=== PATIENT | female | born 1980 | race Hispanic/Latino ===

== ENCOUNTER 2024-04-05 05:07 | Inpatient (IN) | payer BC, MEDICAID, OTHER, SELFPAY ==
[2024-04-04 13:05] LABS: Hematocrit 37.7 % (34.9-44.5); Hemoglobin 12.9 g/dL (12.0-15.5); Platelet Count 261 10x3/uL (150-450)
[2024-04-04 13:55] LABS: HBsAg Index 0.18 S/CO (0-0.99); HIV (1/2) Antibody/Antigen Non-Reactive (NonReactive); HIV 1/2 INDEX 0.07 S/CO (<1.00); Hep B Surf Ag Non-Reactive S/CO (NonReactive)
[2024-04-04 13:56] LABS: Syphilis Antibody Nonreactive (Nonreactive); Syphilis Antibody Index 0.07 S/CO (<1.00 Non-Reactive)
[~2024-04-05 05:07] MED LIST: Acetaminophen 500 MG TAB PO PRN; Carboprost 250 MCG/ML AMP IM PRN; Diphenoxylate HCl/Atropine Tablet PO PRN; Docusate 100 MG CAP PO PRN; Famotidine/PF 20 mg/2ml Vial SLOW IVP PRN; Methylergonovine 0.2 MG/ML VIAL IM PRN; Misoprostol 200 MCG TAB PR PRN; Ondansetron PF 4 MG/2 ML Vial IVP PRN; Oxytocin 30 units/NS 500 ML 500 ML IV SCH; Promethazine HCl 25 MG/ML VIAL IM PRN; Tranexamic Acid 1,000 MG/10 ML VIAL IVP PRN; hydrALAZINE 20 MG/ML VIAL SLOW IVP PRN
[2024-04-05 05:48] VITALS: BMI 35.9
[2024-04-05] MEDS: Lactated Ringer's 1,000 ML IV SCH (06:17)
[2024-04-05] MEDS ORDERED: Famotidine/PF 20 mg/2ml Vial SLOW IVP PRN (06:58)
[2024-04-05] MEDS: CEFAZOLIN 2 GM in Sodium Chloride 0.9% 100 ML IVPB SCH (07:14)
[2024-04-05] MEDS: Bicitra 30 ML UDCUP PO PRN (07:14)
[2024-04-05] MEDS ORDERED: Moisturizing Cream (Eucerin) 113 GM JAR TOP PRN (07:26)
[2024-04-05] MEDS ORDERED: Naloxone HCl 0.4 mg/ml Vial IV PRN (07:26)
[2024-04-05] MEDS ORDERED: Promethazine HCl 25 MG/ML VIAL IM PRN ×2 (07:26)
[2024-04-05] MEDS ORDERED: Ondansetron HCl/PF 4 MG/2 ML Vial IVP PRN (07:26)
[2024-04-05] MEDS ORDERED: HYDROmorphone 2 MG/ML VIAL SLOW IVP PRN (07:26)
[2024-04-05] MEDS ORDERED: Naloxone HCl 0.4 mg/ml Vial IVP PRN ×2 (07:26)
[2024-04-05] MEDS ORDERED: diphenhydrAMINE 50 MG/ML VIAL IVP PRN (07:26)
[2024-04-05] MEDS ORDERED: Communication Order-Pharmacy FS SCH (07:30)
[2024-04-05] MEDS ORDERED: Calcium Gluc 4.6 MEQ/10 ML (100 MG/ML) SLOW IVP PRN (07:40)
[2024-04-05] MEDS ORDERED: Lorazepam 2 MG/ML VIAL SLOW IVP PRN (07:40)
[2024-04-05] MEDS: hydrALAZINE 20 MG/ML VIAL SLOW IVP SCH (07:43)
[2024-04-05] MEDS ORDERED: Magnesium Sulfate 20 gm/500 ml 20 GM/500 ML BAG IVPB SCH (07:45)
[2024-04-05] MEDS ORDERED: Lanolin Ointment 7 GM TUBE TOP PRN (08:54)
[2024-04-05] MEDS ORDERED: diphenhydrAMINE 25 MG CAP PO PRN (08:54)
[2024-04-05] MEDS ORDERED: Bisacodyl 10 MG SUPP PR PRN (08:54)
[2024-04-05 10:28] LABS: #Basophils 0.04 10x3/uL (0.0-0.2); #Eosinphils 0.02 10x3/uL (0.0-0.5); #Monocytes 0.36 10x3/uL (0.0-1.1); #Neutrophils 5.78 10x3/uL (1.5-8.4); %Basophils 0.5 % (0.0-2.0); %Eosinophils 0.3 % (0.0-6.0); %Lymphocytes 20.4 % (18.0-47.0); %Monocytes 4.5 % (0.0-10.0); %Neutrophils 72.5 % (40.0-75.0); Hematocrit 33.5 % (34.9-44.5); Hemoglobin 11.1 g/dL (12.0-15.5); Mean Corpuscular HGB CONC 33.1 g/dL (32.0-36.0); Mean Corpuscular Volume 84.4 fl (81.6-98.3); Mean Platelet Volume 9.9 fl (7.4-10.4); Platelet Count 201 10x3/uL (150-450); Red Blood Cell (RBC) Count 3.97 10x6/uL (3.90-5.03)
[2024-04-05 10:46] LABS: ALT (SGPT) 25 U/L (8-55); AST (SGOT) 41 U/L (5-34); Albumin 2.4 g/dL (3.5-5.0); Alkaline Phosphatase 147 U/L (40-110); Anion Gap 14 mmol/L (10-20); BUN (Urea Nitrogen) 12 mg/dL (7.0-18.7); Bilirubin, Total 0.2 mg/dL (0.2-1.2); Calc. Creatinine Clearance 166 mL/min (70-130); Calcium 8.6 mg/dL (7.8-10.44); Carbon Dioxide 16 mmol/L (22-29); Chloride 112 mmol/L (98-107); Estimated GFR 111; Globulin 3.1 g/dL (2.4-3.5); Glucose 98 mg/dL (70-105); Protein, Total 5.5 g/dL (6.0-8.3); Sodium 138 mmol/L (136-145)
[2024-04-05 11:01] LABS: Creatinine, Urine 22.52 mg/dL (47-110)
[2024-04-05] MEDS: Ketorolac Tromethamine 30 MG (1 mL) VIAL IVP PRN (12:05)
[2024-04-05] MEDS: Phytonadione Neonatal 1 MG/0.5 ML AMP ONE (12:24)
[2024-04-05] MEDS: Erythromycin Base 0.5% Oint 1 GM TUBE ONE (12:24)
[2024-04-05] MEDS: Famotidine/PF 20 mg/2ml Vial ONE (12:24)
[2024-04-05] MEDS: PHENYLEPHRINE-NS 100 MCG/ML 10 ML SYRINGE ONE ×2 (12:24→12:25)
[2024-04-05] MEDS: Dexmedetomidine 200 MCG/2 ML VIAL ONE (12:24)
[2024-04-05] MEDS: ePHEDrine Sulfate 50 MG/10 ML VIAL ONE (12:24)
[2024-04-05] MEDS: Oxytocin 10 UNITS/ML VIAL ONE (12:24)
[2024-04-05] MEDS: Boostrix 0.5 ML (Tdap) VIAL (>/=7 yrs of age) IM ONE (12:24)
[2024-04-05] MEDS: Phenylephrine 40 MG/NS 250 ML 250 ML ONE (12:24)
[2024-04-05] MEDS: Morphine PF 10 MG/10 ML VIAL ONE (12:24)
[2024-04-05] MEDS: Ondansetron PF 4 MG/2 ML Vial ONE (12:24)
[2024-04-05] MEDS: Hepatitis B Vaccine 10 MCG/0.5 ML SYR ONE (12:24)
[2024-04-05] MEDS: Ferrous Sulfate 325 MG TAB PO SCH (12:25)
[2024-04-05] MEDS: Enoxaparin 40 MG (0.4 mL) SYRINGE SC SCH (12:25)
[2024-04-05] MEDS: metFORMIN 500 MG TAB PO SCH ×2 (12:25→17:16)
[2024-04-05] MEDS: Prenatal Vitamin 1 TAB PO SCH (12:25)
[2024-04-05] MEDS: Ibuprofen 800 MG TAB PO SCH (13:12)
[2024-04-05] MEDS: Ondansetron PF 4 MG/2 ML Vial IVP PRN (13:40)
[2024-04-05] MEDS: Acetaminophen 500 MG TAB PO SCH (13:40)
[2024-04-05] MEDS ORDERED: HYDROcodone/Acetaminophen 5/325 mg Tablet PO PRN ×2 (19:30)
[2024-04-05] MEDS: Ibuprofen 600 MG TAB PO SCH (19:41)
[2024-04-06] MEDS: Simethicone Chewable 80 MG TAB PO PRN (00:37)
[2024-04-06 03:25] LABS: Hemoglobin 9.8 g/dL (12.0-15.5); Mean Corpuscular HGB CONC 32.7 g/dL (32.0-36.0); Mean Corpuscular Hemoglobin 27.5 pg (27.0-33.0); Mean Corpuscular Volume 84.3 fl (81.6-98.3); Mean Platelet Volume 9.8 fl (7.4-10.4); Platelet Count 188 10x3/uL (150-450); RBC Distribution Width 15.1 % (11.5-14.5); Red Blood Cell (RBC) Count 3.56 10x6/uL (3.90-5.03); White Blood Cell (WBC) Count 5.9 10x3/uL (3.5-10.5)
[2024-04-06] MEDS: Enoxaparin 40 MG (0.4 mL) SYRINGE SC SCH ×2 (10:19→10:34)
[2024-04-06] MEDS: Ibuprofen 600 MG TAB PO SCH (13:08)
[2024-04-06] MEDS: Polyethylene Glycol 3350 17 GM Packet PO PRN (15:11)
[2024-04-06] MEDS: Docusate 100 MG CAP PO SCH (19:48)
[2024-04-07] MEDS: Senokot 8.6 MG TAB PO SCH (08:32)
[2024-04-07] MEDS: Docusate 100 MG CAP PO SCH (08:32)
[2024-04-07] MEDS: Enoxaparin 40 MG (0.4 mL) SYRINGE SC SCH (08:32)
[2024-04-07] MEDS: Polyethylene Glycol 3350 17 GM Packet PO SCH (08:32)
[2024-04-07 08:54] VITALS: BP 139/60; TEMP 98.7
[2024-04-07] MEDS ORDERED: Enoxaparin 40 MG (0.4 mL) SYRINGE SC SCH (09:00)
== END 2024-04-07 12:45 | disposition home or self-care (01) | DRG 784 ==
LOC: CSHLD 05:07 → CSHPP 12:28
PROVIDERS: ADMIT Student in an Organized Health Care Education/Training Program; ATTEND Student in an Organized Health Care Education/Training Program
PROC: 10D00Z1 Extraction of Products of Conception, Low, Open Approach (ICD-10-PCS; principal; 2024-04-05)
PROC: 0UB70ZZ Excision of Bilateral Fallopian Tubes, Open Approach (ICD-10-PCS; 2024-04-05)
PROC: 3E033XZ Introduction of Vasopressor into Peripheral Vein, Percutaneous Approach (ICD-10-PCS; 2024-04-05)
DX: O34.211 Maternal care for low transverse scar from previous cesarean delivery (principal); D62 Acute posthemorrhagic anemia; O99.214 Obesity complicating childbirth; Z3A.39 39 weeks gestation of pregnancy; Z37.0 Single live birth; O24.425 Gestational diabetes mellitus in childbirth, controlled by oral hypoglycemic drugs; O14.14 Severe pre-eclampsia complicating childbirth; O09.523 Supervision of elderly multigravida, third trimester; D50.9 Iron deficiency anemia, unspecified
CPT/HCPCS: 36415; 36416; 51702; 80053; 82570; 84156; 85014; 85018; 85025; 85027; 85049; 86780; 86850; 86900; 86901; 87340; 87389; 88302; 88305; J0360; J1650; J1885; J2274; J2405; J2590; J3490; J7120; S0028